=== PATIENT | female | born 1985 | race African-American/Black ===

== ENCOUNTER 2023-04-16 10:04 | Outpatient (CLI) | payer OTHER, SELFPAY ==
[2023-04-16 11:00] LABS: Basophils Absolute Auto 0.1 K/mm3 (0.0-0.1); Basophils Percent Auto 0.5 % (0.2-1.2); Eosinophils Absolute Auto 0.1 K/mm3 (0-0.3); Eosinophils Percent Auto 1.4 % (0-4.4); Hematocrit 41.1 % (37.0-47.0); Hemoglobin 13.7 g/dL (12.0-15.0); Lymphocytes Absolute Auto 2.17 K/mm3 (0.9-3.2); Lymphocytes Percent Auto 22.8 % (18.3-44.2); Mean Corpuscular HGB Conc 33.3 g/dl (32-36); Mean Corpuscular Hemoglobin 28.2 pg (26-34); Mean Corpuscular Volume 84.7 fl (80-100); Mean Platelet Volume 11.2 fl (7.4-10.4); Monocytes Absolute Auto 0.7 K/mm3 (0.1-0.6); Monocytes Percent Auto 7.2 % (2.6-8.5); Neutrophils Absolute Auto 6.4 K/mm3 (1.3-6.7); Neutrophils Percent Auto 67.1 % (45.5-73.1); Platelet Count Result 342 k/mm3 (150-375); Red Blood Count 4.85 M/mm3 (4.2-5.4); Red Cell Distribution Width 14.2 % (11.5-14.5); White Blood Count 9.5 K/mm3 (4.5-10.0)
[2023-04-16 14:55] LABS: Hemoglobin A1C 5.6 % (<5.7)
[2023-04-18 13:52] LABS: DHEA-Sulfate 194 mcg/dL (23-266)
[2023-04-19 07:28] LABS: Insulin Level Total 14.5 uIU/mL (<=18.4); LH 1.7 mIU/mL (***); Prolactin 5.8 ng/mL (***)
[2023-04-20 12:56] LABS: Testosterone Free 3.3 pg/mL (0.2-5.0); Testosterone Total 24 ng/dL (2-45)
== END 2023-04-16 10:05 | disposition home or self-care (01) ==
PROVIDERS: Visit Provider Nurse Practitioner Family
DX: E28.2 Polycystic ovarian syndrome (principal)
CPT/HCPCS: 36415; 82627; 83001; 83002; 83036; 83498; 83525; 84146; 84402; 84403; 84443; 85025

== ENCOUNTER 2024-05-14 09:35 | Outpatient (CLI) | payer OTHER, SELFPAY ==
--- NOTE | ~2024-05-14 | US_ITS ---
EXAMINATION TYPE: US breast RT limited COMPARISON: NONE REASON FOR STUDY: R92.8 - Other abnormal and inconclusive findings on diagn... TECHNIQUE: Targeted sonographic evaluation of the right breast was performed. INTERPRETATION: There is mild hypervascularity in the immediate right retroareolar region with possible minimal promi nence of fibroglandular tissue. No definite suspicious mass or dilated ducts seen. IMPRESSION: Mild hypervascularity in the medial right subareolar region, possible minimal prominent thyroid tissu e. Findings could reflect focal mastitis/inflammatory process. No definite suspicious mass or dilated ducts seen, but bilateral mammography is advised, especially given patient age and reported history of breast lump.. BI-RADS CATEGORY: BI-RADS 0: Needs additional imaging evaluation Reviewed, dictated and finalized at [facility]. IMPRESSION: Mild hypervascularity in the medial right subareolar region, possible minimal p rominent thyroid tissue. Findings could reflect focal mastitis/inflammatory pro cess. No definite suspicious mass or dilated ducts seen, but bilateral mammogra phy is advised, especially given patient age and reported history of breast lum p.. BI-RADS CATEGORY: BI-RADS 0: Needs additional imaging evaluation
--- OUTSIDE RECORDS SUMMARY | 2024-05-14 10:11 | XMS_ITS | Clinical Summary ---
Author Organization [facility] Address [address] [place] [address] Care Team Providers Care Turning And Beading Machine Operator Name Role Phone Casey Chavez MD Primary Care Provider [phone] Social History Tobacco Use Types Packs/Day Years Used Date Smoking Tobacco: Never Assessed Comments Unknown Sex and Gender Information Value Date Recorded Sex Assigned at Not on file Legal Sex Female 5:01 PM CDT Gender Identity Not on file Sexual Orientation Not on file Plan of Treatment Health Maintenance Due Date Last Done Comments Cervical Cancer Screening Pa p Smear (Age 30 to 64) Every 3 Years 1985 Annual Physical 08/05/1986 Hepatitis C 08/05/2001 Hepatitis B Vaccines (1 of 3 - 19+ 3-dose series) 08/05/2002 Cervical Cancer Screening Pa p with HPV Testing (Age 30 to 64) Every 5 Years 08/05/2013 Cervical Cancer Screening wi th HPV 08/05/2013 Mammogram Screening 2023 COVID-19 Vaccine (2023-2 5 season) 2023 Influenza Adult (#1) 2023 DTaP, Tdap and Td Vaccines ( 3 - Td or Tdap) 04/19/2029 04/19/2019, 06/28/2011 HPV Vaccines Aged Out No longer eligi ble based on patient's age to complete this topic Meningococcal B Vaccine Aged Out No l onger eligible based on patient's age to complete this topic Meningococcal Vaccine Aged Out No humble tomi eligible based on patient's age to complete this topic Pneumococcal Vaccine: Pediatrics (0 to 5 Years) and At-Risk Patients (6 to 64 Years) Aged Out No longer eligible b ased on patient's age to complete this topic RSV Immunizations Under 20 Months Aged Out No longer eligible b ased on patient's age to complete this topic Insurance [facility] [place] [address] GENERIC - COMMERCIAL Care Teams Turning And Beading Machine Operator Relationship Specialty Start Date End Date Casey Chavez MD [address] [facility] [address] [place] [address] PCP - General INTERNAL MEDICINE 03/20/21
--- OUTSIDE RECORDS SUMMARY | 2024-05-14 10:11 | XMS_ITS | Clinical Summary ---
Author Organization [facility] Address [address] [place] [address] Phone Care Team Providers Care Plastic Joint Maker Name Role Phone Cookie Fernandez MD Primary Care Provider [phone] Allergies Active Allergy Reactions Criticality Noted Date Comments Flu Vacc Quad 2017-(6mos Up) Other (See Comments) 01/15/2019 Right side went numb. Hard time breathing and couldn't turn neck. Medications no.38-udcf-IG-d jerry (CHICKEN CUTTER-PNV-DHA) 28 mg iron- 1 mg-200 mg Capsule Take 1 Capsule by mouth daily. Can sub for any PNV with DHA 30 Capsule 8 9 Active ibuprofen (MOTRIN) 600 mg tablet Take 1 Tablet (600 mg) by mouth every 6 hours as needed for pain secondary to inflammation. 30 Tablet 07/02/2019 12:14 PM CDT 0 Active metoclopramide HCl (REGLAN) 10 mg tablet Take 1 Tablet (10 mg) by mouth 3 times daily. 30 Tablet 0 Active Active Problems Problem Noted Date Diagnosed Date Sebaceous cyst 09/14/2012 Vulvitis 07/07/2012 Resolved Problems Problem Noted Date Diagnosed Date Resolved Date S/P girl [facility] 07/01/2019 020 Uterine contractions during 06/30/2019 07/01/2019 Decreased movements in third trimester 0 08/24/2019 Vaginal discharge during pre gnancy in third trimester 06/09/2019 08/24/2019 Immunizations Immunization Administration Dates Next Due (ADACEL/BOOSTRIX)(10 YR UP) TDAP VACCINE, 0.5ML, IM 04/19/2019 Family History Medical History Relation Name Comments Colon Cancer Father Ovarian Cancer Mother Breast Cancer Neg Hx Celiac Disease Neg Hx Crohn's Disease Neg Hx GERD Neg Hx Kidney Cancer Neg Hx Kidney Disease Neg Hx Liver Cancer Neg Hx Liver Disease Neg Hx Pancreatic Cancer Neg Hx Relation Name Status Comments Father Alive Mother Alive Social History Tobacco Use Types Packs/Day Years Used Date Smoking Tobacco: Never Smokeless Tobacco: Never Alcohol Use Standard Drinks/Week Comments Not Currently 0 (1 standard drink = 0.6 oz pur e alcohol) Feeling Safe Answer Date Recorded Within the last year, have y ou been afraid of your partner or ex-partner? Patient declined 06/30/2019 Within the last year, have y ou been humiliated or emotionally abused in other ways by your partner or ex-partner? Patient declined 06/30/2019 Within the last year, have y ou been kicked, hit, slapped, or otherwise physically hurt by your partner or ex-partner? Patient declined 06/30/2019 Within the last year, have y ou been raped or forced to have any kind of sexual activity by your partner or ex-partner? Patient declined 06/30/2019 Social Connections Answer Date Recorded In a typical week, how many times do you talk on the phone with family, friends, or neighbors? Patient declined 06/30/2019 How often do you get togethe r with friends or relatives? Patient declined 06/30/2019 How often do you attend moravian or religion serv ices? Patient declined 06/30/2019 Do you belong to any clubs o r organizations such as moravian groups, unions, fraternal or athletic groups, or school groups? Patient declined 06/30/2019 How often do you attend meet ings of the clubs or organizations you belong to? Patient declined 06/30/2019 Are you , , di vorced, , never , or living with a partner? Patient declined 06/30/2019 Financial Resource Strain Answer Date R ecorded How hard is it for you to pa y for the very basics like food, housing, medical care, and heating? Not hard at all 06/30/2019 Food Insecurity Answer Date Recorded Within the past 12 months, y ou worried that your food would run out before you got the money to buy more. Patient declined Within the past 12 months, t he food you bought just didn't last and you didn't have money to get more. Patient declined Transportation Needs Answer Date Record ed In the past 12 months, has l ack of transportation kept you from medical appointments or from getting medications? Patient declined 06/30/2019 In the past 12 months, has l ack of transportation kept you from meetings, work, or from getting things needed for daily living? Patient declined 06/30/2019 Comments No Sex and Gender Information Value Date Recorded Sex Assigned at Not on file Legal Sex Female 6:05 AM BUSINESS SYSTEMS CONSULTANT Gender Identity Not on file Sexual Orientation Not on file Occupation Industry Job Start Date Job End Date Not on file Not on file Not on file Not on file Not on file Not on file Not on file Not on file Last Filed Vital Signs Vital Sign Reading Time Taken Comments Blood Pressure 117/67 07/02/2019 8:13 AM CDT Pulse 92 06/30/2019 7:20 PM CDT Temperature 36.8 C (98.3 F) 07/02/2019 8:13 AM CDT Respiratory Rate 16 07/02/2019 8:13 AM CDT Oxygen Saturation 100% 07/01/2019 1:34 AM CDT Inhaled Oxygen Concentration - - Weight 125.3 kg (276 lb 5 oz) 06/30/2019 7:20 PM CDT Height 180.3 cm (5' 11 ) 06/30/2019 7:20 PM CDT Body Mass Index 38.54 06/30/2019 7:20 PM CDT Plan of Treatment Health Maintenance Due Date Last Done Comments HEPATITIS B VACCINES (1 of 3 - 19+ 3-dose series) 08/05/2002 CERVICAL CANCER SCREENING 12/14/20212018, 01/12/2018, 01/12/2018, Additional history exists BREAST CANCER SCREENING 2023 12/13/2015, 06/06 INFLUENZA VACCINE (#1) 2023 DTAP/TDAP/TD VACCINES (2 - Td or Tdap) 04/19/2029 04/19/2019 HPV VACCINES Aged Out No longer eligi ble based on patient's age to complete this topic Procedures Procedure Name Priority Date/Time Associated Diagnosis Comments CERV/VAG CYTO SCREEN PAP W/HPV Routine 12/14/2018 11:14 AM CDT Routine cervical smear Special screening examination for human papillomavirus (HPV) Well female exam with routine gynecological exam MAMMO DIAGNOSTIC BILATERAL W OR WO CAD Routine 12/13/2015 Breast asymmetry in female Breast pain, right from Last 3 Months or Most Recently Relevant to Health Maintenance Results * CERV/VAG CYTO SCREEN PAP W/HPV (12/14/2018 11:14 AM CDT) CLINICAL INFORMATION Information not provided 12/17/2018 2:21 PM CDT [facility] LAST MENSTRUAL PERIOD Information not provided 12/17/2018 2:21 PM CDT [facility] PREV PAP: 01/12/18 NIL 12/17/2018 2:21 PM CDT [facility] PREV BX: Information not provided 12/17/2018 2:21 PM CDT [facility] SOURCE Endocervix 12/17/2018 2:21 PM CDT [facility] ADEQUACY: SEE COMMENT 12/17/2018 2:21 PM CDT [facility] Comment: Satisfactory for evaluation. Endocervical/transformation zone component absent. Age and/or menstrual status not provided PAP INTERP Negative for intraepithelial lesion or malignancy. 12/17/2018 2:21 PM CDT [facility] CYTOLOGY INFECTION Shift in vaginal rojas suggestive of bacterial vaginosis. 12/17/2018 2:21 PM CDT [facility] COMMENT This Pap test has been evaluated with computer assisted technology. 12/17/2018 2:21 PM CDT [facility] CERTIFIED NURSE: SEE COMMENT 2018 2:21 PM CDT [facility] Comment: BOY COLLADO(ASCP) CT screening location: [place] [address] [place] [address] EXPLANATORY NOTE SEE COMMENT 019 2:21 PM CDT [facility] Comment: EXPLANATORY NOTE: The Pap is a screening test for cervical cancer. It is not a diagnostic test and is subject to false negative and false positive results. It is most reliable when a satisfactory sample, regularly obtained, is submitted with relevant clinical findings and history, and when the Pap result is evaluated along with historic and current clinical information. HPV E6/E7 Not Detected Not Detected 12/17/2018 2:21 PM CDT [facility] Comment: This test was performed using the APTIMA HPV Assay ([employer] This assay detects E6/E7 viral messenger RNA (mRNA) from 14 high-risk HPV types (16,18,31,33,35,39,45,51,52,56,58,59,66,68). The analytical performance characteristics of this assay have been determined by [employer]. The modifications have not been cleared or approved by the FDA. This assay has been validated pursuant to the CLIA regulations and is used for clinical purposes. Genital SWAB OF ENDOCERVIX / Unknown Collection / Unknown 12/14/2018 11:14 AM CDT 12/14/2018 1:58 PM CDT Narrative [facility] - 12/17/2018 2:21 PM CDT Performing Organization Information: Site ID: [id number] [facility] Address: [address] [place] [address] Director: Harman Giordano D.O., MPH Site ID: [id number] Name: [facility] Address: [address] [place] [address] Director: Kenroy Linares Brian Penny MD PATHOLOGY/CYTOLOGY [facility] Final Result [facility] [phone] * MAMMO DIGITAL DIAG BILAT (12/13/2015) Anatomical Region Laterality Modality Breast Bilateral Other Brian Penny MD MAMMO ORDERABLES Final Result from Last 3 Months or Most Recently Relevant to Health Maintenance Insurance [facility] BLUE ACCESS/TRUE BLUE PPO RX [employer] Commercial Advance Directives For more information, please contact: [phone] * Full Code (Latest Code Status on File) Date Activated Date Inactivated Comments 07/01/2019 5:23 PM 07/02/2019 6:54 PM * Full Code Date Activated Date Inactivated Comments 06/30/2019 9:28 PM 07/01/2019 5:23 PM * Full Code Date Activated Date Inactivated Comments 06/30/2019 7:17 PM 06/30/2019 9:28 PM * Full Code Date Activated Date Inactivated Comments 06/09/2019 3:54 PM 06/09/2019 7:43 PM * Full Code Date Activated Date Inactivated Comments 05/20/2013 8:29 AM 05/20/2013 11:45 AM Care Teams Plastic Joint Maker Relationship Specialty Start Date End Date Cookie Fernandez MD [address] [place] [address] PCP - General Family Practice 01/10/17
--- OUTSIDE RECORDS SUMMARY | 2024-05-14 10:11 | XMS_ITS | Referral Summary ---
Author Organization [address] Address [address] [place] [address] Care Team Providers Care Parts Representative Name Role Phone Dilcia Veronica NP Primary Care Provider + Encounters Date Type Department Care Team Description 04/30/2024 9:30 AM SALES STOCK ASSOCIATE Office Visit [facility] Neurology [address] [place] [phone] Marvin Shepard Si, MD Seizures, generalized convulsive (HCC) (Primary Dx) from Last 3 Months Allergies Active Allergy Reactions Criticality Noted Date Comments Haemophilus Influenzae Type B Anaphylaxis High 01/15/2019 Right side went numb. Hard time breathing and couldn't turn neck. [place] Flavor Swelling High 07/27/2021 Medications buPROPion XL (WELLBUTRIN XL) 150 mg 24 hr tablet Take 150 mg by mouth daily 3 Active naltrexone (DEPADE) 50 mg tablet Take 50 mg by mouth daily 3 Active ondansetron (ZOFRAN) 4 mg tablet Take 1 tablet (4 mg total) by mouth every 6 (six) hours as needed 3 Active levETIRAcetam (KEPPRA) 500 mg tablet Take 1 tablet (500 mg total) by mouth 2 (two) times a day 180 tablet 3 5 04/30/19 26 Active levETIRAcetam (KEPPRA) 500 mg tablet Take 1 tablet (500 mg total) by mouth 2 (two) times a day 4 04/30/19 25 Discontinu ed(Reorder ) Active Problems Problem Noted Date Diagnosed Date DAMON (dyspnea on exertion) Social History Tobacco Use Types Packs/Day Years Used Date Smoking Tobacco: Never Smokeless Tobacco: Never Tobacco Cessation:Counseling Given: Not Answered Alcohol Use Standard Drinks/Week Comments Yes 0 (1 standard drink = 0.6 oz pur e alcohol) AUDIT-C Answer Date Recorded Frequency of Alcohol Consumption Not on file 06/18/2018 Average Number of Drinks Not on file 019 Frequency of Binge Drinking Weekly 06/01 PHQ-2 Answer Date Recorded PHQ-2 Score 0 10/23/2018 Comments No Sex and Gender Information Value Date Recorded Sex Assigned at Not on file Legal Sex Female 9:16 PM SALES STOCK ASSOCIATE Gender Identity Not on file Sexual Orientation Not on file Last Filed Vital Signs Vital Sign Reading Time Taken Comments Blood Pressure 122/92 04/30/2024 9:37 AM SALES STOCK ASSOCIATE Pulse 105 04/30/2024 9:37 AM SALES STOCK ASSOCIATE Temperature 35.9 C (96.6 F) 01/29/2022 8:58 AM SALES STOCK ASSOCIATE Respiratory Rate 18 01/29/2022 8:58 AM SALES STOCK ASSOCIATE Oxygen Saturation 98% 05/09/2022 10:19 AM SALES STOCK ASSOCIATE Inhaled Oxygen Concentration - - Weight 134.7 kg (297 lb) 04/30/2024 9:37 AM SALES STOCK ASSOCIATE Height 180.3 cm (5' 11 ) 04/30/2024 9:37 AM SALES STOCK ASSOCIATE Body Mass Index 41.42 04/30/2024 9:37 AM SALES STOCK ASSOCIATE Plan of Treatment Not on file Procedures Procedure Name Priority Date/Time Associated Diagnosis Comments DIAGNOSTIC MAMMOGRAM BILATERAL W TY Routine 12/13/2015 3:05 PM CDT from Last 3 Months or Most Recently Relevant to Health Maintenance Results * Diagnostic Mammogram Bilateral W Ty (12/13/2015 3:05 PM CDT) Anatomical Region Laterality Modality Breast Bilateral Mammography 12/13/2015 3:05 PM CDT Impressions 12/13/2015 4:01 PM CDT OVERALL STUDY BIRADS: 1 NEGATIVE No evidence of malignancy. No mammographic or sonographic abnormality at the site of pain in the right breast. Base any further evaluation on clinical examination. This was discussed with Ms. Ling and she was provided with a hand out on breast pain. A 1 year screening mammogram is recommended, given the patient's family history. Dr. Gunner Dow nh/:12/13/2015 16:01:08 Air Hammer Stripper: Deirdre Reid)(Yohana), [facility] letter sent: Normal Exam Reading location: OVERALL STUDY BIRADS: 1 Negative [EOD] Narrative 12/13/2015 4:01 PM CDT - MG - US BILATERAL DIGITAL DIAGNOSTIC MAMMOGRAM 3D/2D WITH CAD AND TARGETED RIGHT ULTRASOUND WITH MEDIOLATERAL OBLIQUE CRANIOCAUDAL: 12/13/2015 The study was acquired using full field digital technology and interpreted from soft copy. Current study was also evaluated with R2 CAD. 2D digital mammographic views, as well as 3D digital tomosynthesis were performed in the CC and MLO projections. CLINICAL: 30-year-old woman presents for evaluation of focal pain in the lateral right breast radiating to the nipple for the past 6 months, and annual mammography of the left breast. Family history of mother with breast cancer at age 40. COMPARISONS: Comparison is made to exam dated: 06/04/2014 baseline mammogram - [facility]. BREAST TISSUE: There are scattered areas of fibroglandular density. MAMMOGRAPHIC FINDINGS: A radiopaque marker was placed over the site of focal pain in the lateral right breast. There is no mammographic abnormality at this site. Targeted ultrasound will be performed. There has been no suspicious change. There is no dominant mass, suspicious calcification or architectural distortion in either breast. ULTRASOUND FINDINGS: Targeted right breast ultrasound at the site of pain along the 10 o'clock axis demonstrated normal-appearing tissue. Procedure Note Provider, MD Neris - 07/17/2020 - MG - US BILATERAL DIGITAL DIAGNOSTIC MAMMOGRAM 3D/2D WITH CAD AND TARGETED RIGHT ULTRASOUND WITH MEDIOLATERAL OBLIQUE CRANIOCAUDAL: 12/13/2015 The study was acquired using full field digital technology and interpretedfrom soft copy. Current study was also evaluated with R2 CAD. 2D digital mammographic views, as well as 3D digital tomosynthesis were performed in the CC and MLO projections. CLINICAL: 30-year-old woman presents for evaluation of focal pain in the lateral right breast radiating to the nipple for the past 6 months, andannual mammography of the left breast. Family history of mother with breastcancer at age 40. COMPARISONS: Comparison is made to exam dated: 06/04/2014 baselinemammogram - [facility]. BREAST TISSUE: There are scattered areas of fibroglandular density. MAMMOGRAPHIC FINDINGS: A radiopaque marker was placed over the site offocal pain in the lateral right breast. There is no mammographic abnormality atthis site. Targeted ultrasound will be performed. There has been no suspicious change. There is no dominant mass,suspicious calcification or architectural distortion in either breast. ULTRASOUND FINDINGS: Targeted right breast ultrasound at the site of pain along the 10 o'clock axis demonstrated normal-appearing tissue. IMPRESSION: OVERALL STUDY BIRADS: 1 NEGATIVE No evidence of malignancy. No mammographic or sonographic abnormality atthe site of pain in the right breast. Base any further evaluation on clinical examination. This was discussed with Ms. Ling and she was providedwith a hand out on breast pain. A 1 year screening mammogram is recommended, given the patient's family history. Dr. Gunner Dow nh/:12/13/2015 16:01:08 Air Hammer Stripper: Deirdre AMARAL (R)(Yohana), [facility] letter sent: Normal Exam Reading location: OVERALL STUDY BIRADS: 1 Negative [EOD] Brian Penny MD IMG MAMMO PROCEDURES Final Result from Last 3 Months or Most Recently Relevant to Health Maintenance Insurance [facility] CHOICE [facility]US [facility] [facility] PLUS [employer] Care Teams Parts Representative Relationship Specialty Start Date End Date Dilcia Veronica NP [address] [place] [address] PCP - General Family Practice 04/30/24
--- OUTSIDE RECORDS SUMMARY | 2024-05-14 10:11 | XMS_ITS | Encounter Summary ---
Author Organization [facility] Care Team Providers Care Certified Rehabilitation Counselor Name Role Phone Cookie Fernandez MD Primary Care Provi alex Casey Chavez MD Primary Care Provider [phone] Dwain Christensen MD Primary Care Provider Dilcia Veronica NP Primary Care Provider + Encounter Details Date Type Department Care Team (Latest Contact Info) Description 11/17/2015 Orders Only [facility] CLINCONV Provider, MD Neris [address] [place] [address] Social History Tobacco Use Types Packs/Day Years Used Date Smoking Tobacco: Never Assessed Comments Unknown Sex and Gender Information Value Date Recorded Sex Assigned at Not on file Legal Sex Female 9:16 PM 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 Historical Provider Final Res ult documented in this encounter Visit Diagnoses Not on filedocumented in this encounter Care Teams Certified Rehabilitation Counselor Relationship Specialty Start Date End Date Cookie Fernandez MD [address] [place] [address] PCP - General Family Medicine 06/17/18 03/22/21 Casey Chavez MD [address] [place] [address] PCP - General Internal Medicine 03/23/21 02/05/22 Dwain Christensen MD [address] [place] [address] PCP - General Family Medicine 02/06/22 04/29/24 Dilcia Veronica NP [address] [place] [address] PCP - General Family Practice 04/30/24 documented as of this encounter
--- OUTSIDE RECORDS SUMMARY | 2024-05-14 10:11 | XMS_ITS ---
Author Organization [facility] Address [address] [place], [place] [phone] Care Team Providers Care Front Office Supervisor Name Role Phone WENDY BREWSTER Unavailable [phone] REASON FOR VISIT *Foot Pain Encounters Encounter Location Date Provider Diagnosis [facility] [address] [facility] [address] [place], [place] [phone] 11/12/2023 WENDY BREWSTER Plan Of Treatment No Information Progress Notes * Antelmo LINGDOB:1985 (38 yo F)Acc No.[id number]:11/12/2023 Progress Notes Patient: Antelmo MCGEE Provider: Brandy Brewster DPM :1985 A ge:38 Y S ex:Female Date:11/12/2023 Address:[facility] [address] [place] [id number] Subjective: * Chief Complaints: * 1 . *Foot Pain. * Medical History: Objective: * Vitals: Assessment: Plan: * Treatment: * Billing Information: * Visit Code: * Procedure Codes: * Electronic signature of GEN CID DPM on 05/14/2024 at 10:11 AM CDT Sign off status: Pending * Provider: Brandy Brewster DPM Date: 0 11/12/2023 Generated for Joann dixon/Nikolai/Navjotitting on: 0 05/14/2024 10:11 AM CDT
--- OUTSIDE RECORDS SUMMARY | 2024-05-14 10:11 | XMS_ITS | Clinical Summary ---
Author Organization [address] Address [address] [address] Care Team Providers Care Channel Marketing Coordinator Name Role Phone Dilcia Veronica NP Primary Care Provider + Allergies Active Allergy Reactions Criticality Noted Date Comments Haemophilus Influenzae Type B Anaphylaxis High 01/15/2019 Right side went numb. Hard time breathing and couldn't turn neck. Nikita Flavor Swelling High 07/27/2021 Medications buPROPion XL [...] Date Diagnosed Date DAMON (dyspnea on exertion) Encounters Date Type Department Care Team Description 04/30/2024 9:30 AM SEED TESTER Office Visit [facility] Neurology [address] [place] [phone] Marvin Shepard Si, MD Seizures, generalized convulsive (HCC) (Primary Dx) from Last 3 Months Family History Medical History Relation Name Comments Heart attack Father Stent Father Cancer Other 1 Reported Family History Of Cancer - Father. (Added by TW Conv) Hypertension Other 2 Reported Previo us High Blood Pressure - Mother. (Added by TW Conv) Thyroid disease Other 3 Thyroid Diso rder - Mother. (Added by TW Conv) Diabetes Other 4 Diabetes Mellit us - Father. (Added by TW Conv) Relation Name Status Comments Father Other 1 Other 2 Other 3 Other 4 Social History Tobacco Use Types Packs/Day Years [...] on file Legal Sex Female 9:16 PM SEED TESTER Gender Identity Not on file Sexual Orientation Not on file Obstetrics History Last Filed Vital Signs Vital Sign Reading Time Taken Comments Blood Pressure 122/92 04/30/2024 9:37 AM SEED TESTER Pulse 105 04/30/2024 9:37 AM SEED TESTER Temperature 35.9 C (96.6 F) 01/29/2022 8:58 AM SEED TESTER Respiratory Rate 18 01/29/2022 8:58 AM SEED TESTER Oxygen Saturation 98% 05/09/2022 10:19 AM SEED TESTER Inhaled Oxygen Concentration - - Weight 134.7 kg (297 lb) 04/30/2024 9:37 AM SEED TESTER Height 180.3 cm (5' 11 ) 04/30/2024 9:37 AM SEED TESTER Body Mass Index 41.42 04/30/2024 9:37 AM SEED TESTER Plan of Treatment Health Maintenance Due Date Last Done Comments Cervical Cancer Screening 1983 Hepatitis C Screening 1983 Varicella Vaccines (1 of 2 - 13+ 2-dose series) 08/05/1996 Hepatitis B Screening 08/05/2001 Regular Well Visit/Exam 18-64 08/05/2001 Breast Cancer Screening-Mammogram 12/12/2016 12/13/2015, 06/06/2014, 06/04/2014 Depression Screening 06/19/2019 06/18/2018 Influenza Vaccine (#1) 2023 DTaP/Tdap/Td Vaccine (2 - Td or Tdap) 04/19/2029 04/19/2019 HPV Vaccines Aged Out No longer eligi ble based on patient's age to complete this topic Pneumococcal vaccine <65 Aged Out No longer eligible based on patient's age to complete [...] family history. Dr. Gunner Dow nh/:12/13/2015 16:01:08 Band Machine Operator: Deirdre AMARAL (R)(M), [facility] letter sent: Normal Exam Reading location: OVERALL [...] Comparison is made to exam dated: 06/04/2014 [facility]. BREAST TISSUE: There are scattered areas of [...] Comparison is made to exam dated: 06/04/2014 [facility]. BREAST TISSUE: There are scattered areas of [...] on clinical examination. This was discussed with French Sushil and she was providedwith a hand out on breast pain. A 1 year screening mammogram is recommended, given the patient's family history. Dr. Gunner Dow nh/:12/13/2015 16:01:08 Band Machine Operator: Deirdre AMARAL (R)(M), [facility] letter sent: Normal Exam Reading location: OVERALL STUDY BIRADS: 1 Negative [EOD] Brian Penny MD IMG MAMMO PROCEDURES Final Result from Last 3 Months or Most Recently Relevant to Health Maintenance Insurance [facility] Address: [address] [address] [place] [address] [facility] CHO[facility] Address: [facility] [id number] [place] [address] [employer] Care Teams Channel Marketing Coordinator Relationship Specialty Start Date End Date Dilcia Veronica NP [address] [place] [address] PCP - General Family Practice 04/30/24
--- OUTSIDE RECORDS SUMMARY | 2024-05-14 10:11 | XMS_ITS | Patient Health Summary ---
Author Organization [facility] [employer] Address [address] [place] [address] Care Team Providers Care Dice Person Name Role Phone Margarita Wu MD Unavailable [phone] None, Physician Primary Care Provider Unavailabl e Note from [facility],non-owned Affiliates and Associated Physician Practices is amultiple site organization consisting of ambulatory clinics and hospital sitesin [place], [place], [place] and [place]. This disclosure is being madepursuant to the Care Everywhere program and may not contain all information available regarding this patient. Last updated 17.[facility] Allergies * Dairy Enzyme Formula(Anaphylaxis) -High Criticality * Flu Virus Vaccine(Anaphylaxis) -High Criticality * Hemophilus B Polysaccharide Vaccine(Anaphylaxis) -High Criticality * Riley Flavor(Swelling) -High Criticality Medications * Be aware that medications may not be up to date on this document. Alwaysverify current medications with the patient. * tirzepatide (Mounjaro) 5 MG/0.5ML injection(Started 02/13/2022) Inject 5 (five) mg subcutaneously every 7 days 2 refills by 02/13/2023 * traZODone (Desyrel) 50 MG tablet(Started 04/09/2022) Take 1 (one) tablet by mouth at bedtime * buPROPion XL 24hr (Wellbutrin-XL) 150 MG tablet(Started 04/24/2022) Take 1 (one) tablet by mouth once daily 2 refills by 04/24/2023 * naltrexone (Revia) 50 MG tablet(Started 04/25/2022) Take 1 (one) tablet by mouth once daily 2 refills by 04/25/2023 * dicyclomine (Bentyl) 10 MG capsule(Started 08/19/2022) Take 1 (one) capsule by mouth 4 times daily * ondansetron (Zofran) 4 MG tablet(Started 08/19/2022) Take 1 (one) tablet by mouth every 6 hours as needed for Nausea/Vomiting Active Problems Problem Noted Date Diagnosed Date Class 3 severe obesity due t o excess calories with serious comorbidity and body mass index (BMI) of 40.0 to 44.9 in adult 02/06/2022 Pulmonary hypertension 01/15/2022 ASCUS of cervix with negative high risk HPV 08/2021 Sebaceous cyst 09/14/2012 PCOS (polycystic ovarian syndrome) Disorder of thyroid Anxiety disorder Immunizations * TDAP (7yrs+)(Given 04/19/2019) Social History Tobacco Use Types Packs/Day Years Used Date Smoking Tobacco: Never Smokeless Tobacco: Never Tobacco Cessation:Counseling Given: Not Answered Alcohol Use Standard Drinks/Week Comments Yes 0 (1 standard drink = 0.6 oz pur e alcohol) PHQ-2 Answer Date Recorded PHQ2 TOTAL SCORE 0 08/19/2022 Sex and Gender Information Value Date Recorded Sex Assigned at Not on file Gender Identity Female 07/27/2021 10:18 AM CDT Sexual Orientation Not on file Last Filed Vital Signs Vital Sign Reading Time Taken Comments Blood Pressure 127/77 08/19/2022 3:07 PM CDT Pulse 90 08/19/2022 3:07 PM CDT Temperature 37.2 C (98.9 F) 08/19/2022 3:07 PM CDT Respiratory Rate - - Oxygen Saturation 100% 08/19/2022 3:07 PM CDT Inhaled Oxygen Concentration - - Weight 136.5 kg (301 lb) 08/19/2022 3:07 PM CDT Height 180.3 cm (5' 11 ) 08/19/2022 3:07 PM CDT Body Mass Index 41.98 08/19/2022 3:07 PM CDT Procedures * XR ABDOMEN KUB(Performed 08/19/2022) Performed for Abdominal pain, unspecified abdominal location * LIPASE BLOOD(Performed 08/19/2022) Performed for Abdominal pain, unspecified abdominal location * COMPREHENSIVE METABOLIC PANEL(Performed 08/19/2022) Performed for Abdominal pain, unspecified abdominal location * CBC W AUTO DIFFERENTIAL(Performed 08/19/2022) Performed for Abdominal pain, unspecified abdominal location * LIPID PROFILE(Performed 08/08/2021) Performed for PCOS (polycystic ovarian syndrome) * ANTI-MULLERIAN HORMONE(Performed 08/08/2021) Performed for PCOS (polycystic ovarian syndrome) * PROGESTERONE(Performed 08/08/2021) Performed for PCOS (polycystic ovarian syndrome) * ESTRADIOL(Performed 08/08/2021) Performed for PCOS (polycystic ovarian syndrome) * FSH + LH PANEL(Performed 08/08/2021) Performed for PCOS (polycystic ovarian syndrome) * HEMOGLOBIN A1C(Performed 08/08/2021) Performed for PCOS (polycystic ovarian syndrome) * DHEA SULFATE(Performed 08/08/2021) Performed for PCOS (polycystic ovarian syndrome) * COMPREHENSIVE METABOLIC PANEL(Performed 08/08/2021) Performed for PCOS (polycystic ovarian syndrome) * CBC W AUTO DIFFERENTIAL(Performed 08/08/2021) Performed for Hypothyroidism, unspecified type, Pulmonary hypertension (HCC), PCOS (polycystic ovarian syndrome) * THYROID PANEL COMPREHENSIVE (TSH,T4,T3 UPTAKE,FTI,T3)(Performed 08/08/2021) Performed for Well woman exam with routine gynecological exam, Hypothyroidism, unspecified type, Pulmonary hypertension (HCC) * PAP IG LB+CT+NG+TV+HPV APTIMA RFLX 16,18/45(Performed 07/27/2021) Performed for Well woman exam with routine gynecological exam, Special screening examination for human papillomavirus (HPV), Screening for venereal disease Results * XR ABDOMEN KUB (08/19/2022 4:20 PM CDT) Anatomical Region Laterality Modality Abdomen Radiographic Ann ging 08/19/2022 4:26 PM CDT Impressions 08/19/2022 4:27 PM CDT IMPRESSION: NONSPECIFIC BOWEL GAS PATTERN. > Interpreting Provider: Vivek Villeda MD on 08/19/2022 4:27 PM Narrative 08/19/2022 4:27 PM CDT PROCEDURE: TEMPORARY, DATE/TIME OF EXAM: 08/19/2022 4:26 PM, LOCATION INDICATION: ADDITIONAL CLINICAL INFORMATION: Ordering Provider Reason For Exam: Technologist Note: Additional: COMPARISON: None. ABDOMINAL PLAIN FILM INDICATION: 37 old woman with abdominal pain and diarrhea FINDINGS: An AP supine examination the abdomen, 4 is reviewed without the benefit of any prior studies. Body ornamentation is present. I do not see any abnormally dilated small bowel loops. There is no pneumatosis. I do not see any suspicious extraosseous calcifications. Images, 1637 hours, Procedure Note Vivek Villeda MD - 08/19/2022 PROCEDURE: TEMPORARY, DATE/TIME OF EXAM: 08/19/2022 4:26 PM, LOCATION INDICATION: ADDITIONAL CLINICAL INFORMATION: Ordering Provider Reason For Exam: Technologist Note: Additional: COMPARISON: None. ABDOMINAL PLAIN FILM INDICATION: 37 old woman with abdominal pain and diarrhea FINDINGS: An AP supine examination the abdomen, 4 is reviewed withoutthe benefit of any prior studies. Body ornamentation is present. I do not see any abnormally dilated small bowel loops. There is no pneumatosis. I do not see any suspicious extraosseous calcifications. Images, 1637 hours, IMPRESSION: NONSPECIFIC BOWEL GAS PATTERN. > Interpreting Provider: Vivek Villeda MD on 08/19/2022 4:27 PM Melodie Hidalgo PA-C DIAGNOSTIC IMAGIN G ORDERABLES * (ABNORMAL) CBC WITH DIFFERENTIAL (08/19/2022 3:39 PM CDT) Only the most recent of2 resultswithin the time period is included. WBC 12.9(H) 4.4 - 10.7 x10E9/L [facility] ACCOUNT BILL RBC 4.94 3.80 - 5.20 x10E12/L [facility] ACCOUNT BILL Hemoglobin 13.7 12.0 - 15.6 gm/dL [facility] ACCOUNT BILL Hematocrit 42.2 35.9 - 45.5 % [facility] ACCOUNT BILL MCV 85.4 80.7 - 98.3 fl [facility] ACCOUNT BILL MCH 27.7 26.7 - 34.0 pg [facility] ACCOUNT BILL MCHC 32.5 30.8 - 35.9 gm/dL [facility] ACCOUNT BILL RDW 13.8 12.1 - 14.9 % [facility] ACCOUNT BILL Platelet Count 316 153 - 416 x10E9/L [facility] ACCOUNT BILL Comment:MPV FL BLOOD (SSM) 1 1.6 fl 9.4-12.9 Granulocytes % 66.4 44.0 - 73.0 % [facility] ACCOUNT BILL Lymphocytes % 19.0(L) 20.0 - 43.0 % [facility] ACCOUNT BILL Monocytes % 5.3 5.0 - 13.0 % [facility] ACCOUNT BILL Eosinophils % 7.2(H) 0.0 - 6.0 % [facility] ACCOUNT BILL Basophils % 0.5 0.0 - 2.0 % [facility] ACCOUNT BILL Granulocytes Absolute 8.57(H) 2.01 - 7.14 x10E9/L [facility] ACCOUNT BILL Lymphocytes Absolute 2.45 1.07 - 3.94 x10E9/L [facility] ACCOUNT BILL Monocytes Absolute 0.68 0.26 - 1.07 x10E9/L [facility] ACCOUNT BILL Eosinophils Absolute 0.93(H) 0 - 0.47 x10E9/L [facility] ACCOUNT BILL Basophils Absolute 0.06 0 - 0.08 x10E9/L [facility] ACCOUNT BILL Immature Granulocytes 1.6(H) 0 - 1 % [facility] ACCOUNT BILL Immature Granulocytes Absolute 0.21(H) 0.00 - 0.06 x10E9/L [facility] ACCOUNT BILL nRBC 0 /100 WBC [facility] ACCOUNT BILL Blood BLOOD SPECIMEN / Unknown 08/19/2022 3:39 PM CDT 08/19/2022 Narrative Resulting Agency Comment Lab Testing performed at: [address] [place] [phone] Melodie Hidalgo PA-C LAB - HEMATOLOGY ORDERABLES [facility] ACCOUNT BILL [address] [place] [address] * (ABNORMAL) COMPREHENSIVE METABOLIC PANEL (08/19/2022 3:39 PM CDT) Only the most recent of2 resultswithin the time period is included. Glucose 90 70 - 105 mg/dL [facility] ACCOUNT BILL BUN 8 7 - 18.7 mg/dL [facility] ACCOUNT BILL Creatinine 0.89 0.57 - 1.11 mg/dL [facility] ACCOUNT BILL eGFR by CKD-EPI 85(L) >=90 mL/min/1.7 3 m2 [facility] ACCOUNT BILL Sodium 140 136 - 145 mmol/L [facility] ACCOUNT BILL Potassium 4.4 3.5 - 5.1 mmol/L [facility] ACCOUNT BILL Chloride 106 98 - 107 mmol/L [facility] ACCOUNT BILL CO2 23 23 - 31 mmol/L [facility] ACCOUNT BILL Calcium 9.7 8.4 - 10.4 mg/dL [facility] ACCOUNT BILL Protein Total 7.3 6.4 - 8.3 gm/dL [facility] ACCOUNT BILL Albumin 4.1 3.5 - 5.2 gm/dL [facility] ACCOUNT BILL Bilirubin Total 0.4 0.2 - 1.2 mg/dL [facility] ACCOUNT BILL Alkaline Phosphatase 47 40 - 150 U/L [facility] ACCOUNT BILL AST 13 5 - 34 U/L [facility] ACCOUNT BILL ALT 15 0 - 61 U/L [facility] ACCOUNT BILL Blood BLOOD SPECIMEN / Unknown 08/19/2022 3:39 PM CDT 08/19/2022 Narrative Resulting Agency Comment Lab Testing performed at: [address] [place] [phone] Melodie Hidalgo PA-C LAB - CHEMISTRY O CONNIEERABRITTA [facility] ACCOUNT BILL [address] [place] [address] * LIPASE BLOOD (08/19/2022 3:39 PM CDT) Lipase 10 8 - 78 U/L [facility] A CCOUNT BILL Blood BLOOD SPECIMEN / Unknown 08/19/2022 3:39 PM CDT 08/19/2022 Narrative Resulting Agency Comment Lab Testing performed at: [place] [address] [address] [place] [id number] Melodie Hidalgo PA-C LAB - CHEMISTRY O RDERABLES [facility] ACCOUNT BILL [address] [place] [address] * ANTI-MULLERIAN HORMONE (08/08/2021 1:44 PM CDT) Anti-Mullerian Hormone 7.32 ng/mL [facility] ACCOUNT BILL Comment: For assays employing antibodies, the possibility exists for interference by heterophile antibodies in the samples.1 1.A[place]ia [place] Interferences in Immunoassays - still a threat. Clin. Chem. 2000; 46: 7720-9270. This test was developed and its performance characteristics determined by [facility]. It has not been cleared or approved by the Food and Drug Administration. Reference Range: Females 36 - 40y: 0.42 - 8.34 Median 1.69 AMH concentrations of >= 1.06 ng/mL is correlated with a better response to ovarian stimulation, produced more retrievable oocytes and higher odds of live according to Carloser et al. Fertility and Sterility. 2010: 94:6164-5465. The current AMH test method correlates with the study method with a slope of 0.94. Females at risk of ovarian hyperstimulation syndrome or polycystic ovarian syndrome (PCOS) may exhibit elevated serum AMH concentrations. AMH levels from PCOS patients may be 2 to 5 fold higher than age-appropriate reference interval values. Granulosa cell tumors of the ovary may secrete AMH along with other tumor markers. Elevated AMH is not specific for malignancy, and the assay should not be used exclusively to diagnose or exclude an AMH-secreting ovarian tumor. FASTING Blood BLOOD SPECIMEN / Unknown 08/08/2021 1:44 PM CDT 08/08/2021 Narrative Resulting Agency Comment Lab Testing performed at: [employer] [address] [place] [id number] Margarita Wu MD LAB - CHEMISTRY ROLANDA PETERSON [facility] ACCOUNT BILL [address] [place] [address] * DHEA SULFATE (08/08/2021 1:44 PM CDT) Dehydroepiandrosterone Sulfate (DHEAS) 184.0 57.3 - 279.2 ug/dL [facility] ACCOUNT BILL Comment:FASTING Blood BLOOD SPECIMEN / Unknown 08/08/2021 1:44 PM CDT 08/08/2021 Narrative Resulting Agency Comment Lab Testing performed at: [facility] [place] [address] [facility] [phone] Margarita Wu MD LAB - CHEMISTRY ROLANDA PETERSON Performing Organization Address City/[facility] Co de Phone Number [facility] ACCOUNT BILL [address] [place] [address] * PROGESTERONE (08/08/2021 1:44 PM CDT) Progesterone 0.2 ng/mL [facility] ACCOUNT BILL Comment: Follicular phase 0.1 - 0.9 Luteal phase 1.8 - 23.9 Ovulation phase 0.1 - 12.0 First trimester 11.0 - 44.3 Second trimester 25.4 - 83.3 Third trimester 58.7 - 214.0 Postmenopausal 0.0 - 0.1 FASTING Blood BLOOD SPECIMEN / Unknown 08/08/2021 1:44 PM CDT 08/08/2021 Narrative Resulting Agency Comment Lab Testing performed at: [facility] [place] [address] [facility] [phone] Margarita Wu MD LAB - CHEMISTRY ROLANDA PETERSON Performing Organization Address [facility] Co de Phone Number [facility] ACCOUNT BILL [address] [place] [address] * HEMOGLOBIN A1C (08/08/2021 1:44 PM CDT) Hemoglobin A1c 5.5 4.8 - 5.6 % [facility] ACCOUNT BILL Comment: . Prediabetes: 5.7 - 6.4 Diabetes: >6.4 Glycemic control for adults with diabetes: <7.0 FASTING Blood BLOOD SPECIMEN / Unknown 08/08/2021 1:44 PM CDT 08/08/2021 Narrative Resulting Agency Comment Lab Testing performed at: [facility] [place] [address] [facility] [id number] Margarita Wu MD LAB - CHEMISTRY ROLANDA PETERSON Performing Organization Address City/[facility]/ZIP Co de Phone Number [facility] ACCOUNT BILL [address] [place] [address] * ESTRADIOL (08/08/2021 1:44 PM CDT) Estradiol 39.6 pg/mL [facility] ACCOUNT BILL Comment: Adult Female: Follicular phase 12.5 - 166.0 Ovulation phase 85.8 - 498.0 Luteal phase 43.8 - 211.0 Postmenopausal <6.0 - 54.7 1st trimester 215.0 - >4300.0 Regina ECLIA methodology FASTING Blood BLOOD SPECIMEN / Unknown 08/08/2021 1:44 PM CDT 08/08/2021 Narrative Resulting Agency Comment Lab Testing performed at: [facility] [address] [facility] [phone] Margarita Wu MD LAB - CHEMISTRY ROLANDA PETERSON [facility] ACCOUNT BILL [address] [place] [address] * FSH + LH PANEL (08/08/2021 1:44 PM CDT) LH 5.8 mIU/mL [facility] ACCOUNT BILL Comment: Adult Female: Follicular phase 2.4 - 12.6 Ovulation phase 14.0 - 95.6 Luteal phase 1.0 - 11.4 Postmenopausal 7.7 - 58.5 FSH 8.0 mIU/mL [facility] ACCOUNT BILL Comment: Adult Female: Follicular phase 3.5 - 12.5 Ovulation phase 4.7 - 21.5 Luteal phase 1.7 - 7.7 Postmenopausal 25.8 - 134.8 FASTING Blood BLOOD SPECIMEN / Unknown 08/08/2021 1:44 PM CDT 08/08/2021 Narrative Resulting Agency Comment Lab Testing performed at: [facility] [address] [facility] [phone] Margarita Wu MD LAB - CHEMISTRY ROLANDA PETERSON [facility] ACCOUNT BILL [address] [place] [address] * (ABNORMAL) LIPID PROFILE (LIPID PANEL) (08/08/2021 1:44 PM CDT) Cholesterol 229(H) 100 - 199 mg/dL [facility] ACCOUNT BILL Triglycerides 48 0 - 149 mg/dL [facility] ACCOUNT BILL HDL Cholesterol 49 >39 mg/dL [facility] ACCOUNT BILL VLDL Calculated 8 5 - 40 mg/dL [facility] ACCOUNT BILL LDL Calculated 172(H) 0 - 99 mg/dL [facility] ACCOUNT BILL Comment NOT NEEDED [facility] ACCOUNT BILL Comment: FASTING Ancillary determined the test is not needed. Blood BLOOD SPECIMEN / Unknown 08/08/2021 1:44 PM CDT 08/08/2021 Narrative Resulting Agency Comment Lab Testing performed at: [facility] [address] [place] [phone] Margarita Wu MD LAB - CHEMISTRY ROLANDA PETERSON Performing Organization Address City/[facility]/ZIP Co de Phone Number [facility] ACCOUNT BILL [address] [place] [address] * THYROID PANEL COMPREHENSIVE (TSH,T4,T3 UPTAKE,FTI,T3) (08/08/2021 1:43 PM CDT) TSH 1.840 0.450 - 4.500 uIU/mL [facility] ACCOUNT BILL T4 Total 6.3 4.5 - 12.0 ug/dL [facility] ACCOUNT BILL T3 Uptake 29 24 - 39 % [facility] ACCOUNT BILL Free Thyroxine Index 1.8 1.2 - 4.9 [facility] ACCOUNT BILL T3 Total 94 71 - 180 ng/dL [facility] ACCOUNT BILL Comment:FASTING Blood BLOOD SPECIMEN / Unknown 08/08/2021 1:43 PM CDT 08/08/2021 Narrative Resulting Agency Comment Lab Testing performed at: [facility] [place] [address] [facility] [phone] Margarita Wu MD LAB - CHEMISTRY ROLANDA PETERSON Performing Organization Address City/[facility]/ZIP Co de Phone Number [facility] ACCOUNT BILL [address] [place] [address] * (ABNORMAL) PAP IG LB+CT+NG+TV+HPV APTIMA RFLX 16,18/45 (07/27/2021 11:01 AM CDT) Diagnosis (A) [facility] ACCOUNT BILL Comment: EPITHELIAL CELL ABNORMALITY. ATYPICAL SQUAMOUS CELLS OF UNDETERMINED SIGNIFICANCE (ASC-US). Specimen Adequacy [facility] ACCOUNT BILL Comment: Satisfactory for evaluation. Endocervical and/or squamous metaplastic cells (endocervical component) are present. Clinician Provided ICD10 [facility] ACCOUNT BILL Comment: Z01.419 Z11.51 Z11.3 E03.9 I27.20 E28.2 Performed by [facility] ACCOUNT BILL Comment:Genaro [facility] Steam Table Attendant (ASCP) Electronically Signed by [facility] ACCOUNT BILL Comment:Michael dsouza MD (Charles), Pathologist Comment . [facility] ACCOUNT BILL Pathologist Provided ICD10 [facility] ACCOUNT BILL Comment:R87.610 Note [facility] ACCOUNT BILL Comment: The Pap smear is a screening test designed to aid in the detection of premalignant and malignant conditions of the uterine cervix. It is not a diagnostic procedure and should not be used as the sole means of detecting cervical cancer. Both false-positive and false-negative reports do occur. . IGLBP CPT Code Automation [facility] ACCOUNT BILL Comment: This liquid based ThinPrep(R) pap test was screened with the use of an image guided system. Human papillomavirus Aptima Negative Negative [facility] ACCOUNT BILL Comment: This nucleic acid amplification test detects fourteen high-risk HPV types (16,18,31,33,35,39,45,51,52,56,58,59,66,68) without differentiation. Chlamydia trachomatis BRAD Negative Negative [facility] ACCOUNT BILL GC BRAD Negative Negative [facility] ACCOUNT BILL Trichomonas vaginalis by BRAD Negative Negative [facility] ACCOUNT BILL PART OF UTERINE CERVIX / Unknown 07/27/2021 11:01 AM CDT 07/30/2021 Narrative [facility] ACCOUNT BILL - 08/03/2021 3:08 PM CDT Source.............Cervix;Endocervix No. of containers..01 ThinPrep Vial Resulting Agency Comment Lab Testing performed at: [facility] [phone] Margariat Wu MD LAB - PATHOLOGY/CYTO LOGY ORDERABLES [facility] ACCOUNT BILL [address] [place] [address] Care Teams Dice Person Relationship Specialty Start Date End Date None, Physician PCP - General 05/20/23 [place] [address] [place], [place] [id number] Bulk Sealer Operator Obstetrics and Gynecology 07/27/21
--- OUTSIDE RECORDS SUMMARY | 2024-05-14 10:12 | XMS_ITS | Referral Summary ---
Author Organization [facility] Address [address] [place] [address] Care Team Providers Care Tuck Pointer Name Role Phone Margarita Wu MD Unavailable [phone] None, Physician Primary Care Provider Unavailabl e Source Comments [facility],non-owned Affiliates and Associated Physician Practices is amultiple site organization consisting of ambulatory clinics and hospital sitesin [place], [place], [place] and [place]. This disclosure is being madepursuant to the Care Everywhere program and may not contain all information available regarding this patient. Last updated 17.[facility] Allergies Active Allergy Reactions Criticality Noted Date Comments Dairy Enzyme Formula Anaphylaxis High 07/27/2021 Flu Virus Vaccine Anaphylaxis High 01/15/2019 Right side went numb. Hard time breathing and couldn't turn neck. Hemophilus B Polysaccharide Vaccine Anaphylaxis High 01/15/2019 Right side went numb. Hard time breathing and couldn't turn neck. [place] Flavor Swelling High 07/27/2021 Medications * Be aware that medications may not be up to date on this document. Alwaysverify current medications with the patient. Medication Sig Dispensed Refills Start Date End Date Status tirzepatide (Mounjaro) 5 MG/0.5ML injectionIndicati ons:Class 3 severe obesity due to excess calories with serious comorbidity and body mass index (BMI) of 40.0 to 44.9 in adult (HCC),Insulin resistance Inject 5 (five) mg subcutaneously every 7 days 2 mL 2 02/13/2022 Active traZODone (Desyrel) 50 MG tabletIndications :Generalized anxiety disorder,Reactive depression Take 1 (one) tablet by mouth at bedtime 90 tablet 04/09/2022 Active buPROPion XL 24hr (Wellbutrin-XL) 150 MG tabletIndications :Class 3 severe obesity due to excess calories with serious comorbidity and body mass index (BMI) of 40.0 to 44.9 in adult (HCC) Take 1 (one) tablet by mouth once daily 30 tablet 2 04/24/2022 Active naltrexone (Revia) 50 MG tablet Take 1 (one) tablet by mouth once daily 30 tablet 2 04/25/2022 Active dicyclomine (Bentyl) 10 MG capsule Take 1 (one) capsule by mouth 4 times daily 60 capsule 08/19/2022 Active ondansetron (Zofran) 4 MG tablet Take 1 (one) tablet by mouth every 6 hours as needed for Nausea/Vomiting 60 tablet 08/19/2022 Active Active Problems Problem Noted Date Diagnosed Date Class 3 severe obesity due t o excess calories with serious comorbidity and body mass index (BMI) of 40.0 to 44.9 in adult 02/06/2022 Pulmonary hypertension 01/15/2022 ASCUS of cervix with negative high risk HPV 08/2021 Overview (2021): Repeat pap 2022 due to history abnormal pap [id number] with colpo. No records in Epic. Sebaceous cyst 09/14/2012 PCOS (polycystic ovarian syndrome) Disorder of thyroid Anxiety disorder Immunizations Name Administration Dates Next Due TDAP (7yrs+) 04/19/2019 Social History Tobacco Use Types Packs/Day Years [...] Mass Index 41.98 08/19/2022 3:07 PM CDT Plan of Treatment Not on file Procedures Procedure Name Priority Date/Time Associated Diagnosis Comments LIPID PROFILE Routine 08/08/2021 1:44 PM CDT PCOS (polycystic ovarian syndrome) PAP IG LB+CT+NG+TV+HPV APTIMA RFLX 16,18/45 Routine 07/27/2021 11:01 AM CDT Well woman exam with routine gynecological exam Special screening examination for human papillomavirus (HPV) Screening for venereal disease from Last 3 Months or Most Recently Relevant to Health Maintenance Results * (ABNORMAL) LIPID PROFILE (LIPID PANEL) (08/08/2021 [...] Agency Comment Lab Testing performed at: [facility] [place] [address] [id number] Margarita Wu MD LAB - CHEMISTRY ROLANDA PETERSON [facility] ACCOUNT BILL [address] [place] [address] * (ABNORMAL) PAP IG LB+CT+NG+TV+HPV APTIMA RFLX [...] Performed by [facility] ACCOUNT BILL Comment:Genaro Deluca [facility] Warp Hand (ASCP) Electronically Signed by [facility] ACCOUNT BILL [...] Resulting Agency Comment Lab Testing performed at: [address] [id number] Margarita Wu MD LAB - PATHOLOGY/CYTO LOGY ORDERABLES [facility] ACCOUNT BILL [address] [place] [address] from Last 3 Months or Most Recently Relevant to Health Maintenance Additional Health Concerns Infection Onset Date Last Indicated CDIFF Under Investigation 08/19/20222022 Care Teams Tuck Pointer Relationship Specialty Start Date End Date None, Physician PCP - General 05/20/23 [place] [address] [address] [address] Sales Executive Insurance Obstetrics and Gynecology 07/27/21
--- OUTSIDE RECORDS SUMMARY | 2024-05-14 10:12 | XMS_ITS | Patient Health Record ---
Author Organization [facility] Address [address] [place], [place] [id number] Care Team Providers Care Contract Preparer Name Role Phone WENDY WILLIAM Unavailable [phone] Reason For Referral No Information Plan Of Treatment No Information
--- OUTSIDE RECORDS SUMMARY | 2024-05-14 10:12 | XMS_ITS | Clinical Summary ---
Author Organization [facility] Address [address] [place] [address] Care Team Providers Care Third Shift Lieutenant Name Role Phone Margarita Wu MD Unavailable [phone] None, Physician Primary Care Provider Unavailabl e Source Comments [facility],non-owned Affiliates and Associated Physician Practices is amultiple site organization consisting of ambulatory clinics and hospital sitesin [place], [place] and [place]. This disclosure is being madepursuant to the Care Everywhere program and may not contain all information available regarding this patient. Last updated 17.[facility] Allergies Active Allergy Reactions Criticality Noted Date Comments Dairy Enzyme Formula Anaphylaxis High 07/27/2021 Flu Virus Vaccine Anaphylaxis High 01/15/2019 Right side went numb. Hard time breathing and couldn't turn neck. Hemophilus B Polysaccharide Vaccine Anaphylaxis High 01/15/2019 Right side went numb. Hard time breathing and couldn't turn neck. [place] Flavor Swelling High 07/27/2021 Medications * Be [...] pap 2022 due to history abnormal pap [id number] with colpo. No records in Epic. Sebaceous cyst 09/14/2012 PCOS (polycystic ovarian syndrome) Disorder of thyroid Anxiety disorder Immunizations Name Administration Dates Next Due TDAP (7yrs+) 04/19/2019 Family History Medical History Relation Name Comments CAD (Coronary Artery Disease) Father Cancer - Colon Father Cancer - Prostate Father Diabetes - Type 2 Father Hypertension Father Arthritis - Osteo Mother Arthritis - Rheumatoid Mother Cancer - Ovarian Mother Cancer - Thyroid Mother Hypertension Mother Thyroid Disease Mother Relation Name Status Comments Father Mother Social History Tobacco Use Types Packs/Day Years [...] 08/19/2022 3:07 PM CDT Plan of Treatment Health Maintenance Due Date Last Done Comments MAMMOGRAM 1985 HIV SCREENING 08/05/1998 HEPATITIS C SCREENING 08/01/2001 HEPATITIS B VACCINE (1 of 3 - 19+ 3-dose series) 08/05/2002 COVID-19 VACCINE (2023-2 5 season) 2023 DEPRESSION SCREENING 03/03/2024 04/09/2022, 01/15/2022 PAP with HPV 07/27/2026 07/27/2021 LIPID TESTING 08/08/2026 08/08/2021 DTAP/TDAP/TD VACCINES (2 - T d or Tdap) 04/19/2029 04/19/2019 ZOSTER VACCINE (1 of 2) 08/05/2033 HIB VACCINE Aged Out No longer eligi ble based on patient's age to complete this topic HPV VACCINE Aged Out No longer eligi ble based on patient's age to complete this topic MENINGOCOCCAL (Group B) VACCINE SHARED DECISION-MAKING Aged Out No longer eligible based on patient's age to complete this topic MENINGOCOCCAL GROUPS A/C/Y/W VACCINE Aged Out No longer eligible b ased on patient's age to complete this topic PNEUMOCOCCAL VACCINE Aged Out No long er eligible based on patient's age to complete [...] Agency Comment Lab Testing performed at: [facility] [place] [address] [facility] [id number] Margarita Wu MD LAB - CHEMISTRY ROLANDA PETERSON [facility] ACCOUNT BILL [address] [place] [address] * (ABNORMAL) PAP IG LB+CT+NG+TV+HPV APTIMA RFLX [...] [facility] ACCOUNT BILL Comment:Genaro Deluca [facility] Senior Talent Management Consultant (ASCP) Electronically Signed by [facility] ACCOUNT BILL [...] Agency Comment Lab Testing performed at: [facility] [address] [id number] Margarita Wu MD LAB - PATHOLOGY/CYTO LOGY ORDERABLES [facility] ACCOUNT BILL [address] [place] [address] from Last 3 Months or Most Recently Relevant to Health Maintenance Additional Health Concerns Infection Onset Date Last Indicated CDIFF Under Investigation 08/19/20222022 Care Teams Third Shift Lieutenant Relationship Specialty Start Date End Date None, Physician PCP - General 05/20/23 [place] [address] [address] Fence Setter Obstetrics and Gynecology 07/27/21
== END 2024-05-14 09:36 | disposition home or self-care (01) ==
LOC: ANHIMG 09:38
PROVIDERS: Visit Provider Surgery
DX: R92.8 Other abnormal and inconclusive findings on diagnostic imaging of breast (principal); N61.1 Abscess of the breast and nipple
CPT/HCPCS: 76642

== ENCOUNTER 2024-08-26 13:12 | Outpatient (CLI) | payer OTHER, SELFPAY ==
--- NOTE | ~2024-08-26 | MM_ITS ---
EXAMINATION: MM diagnostic derrick BI w reynaldo HISTORY: Mastitis TECHNIQUE: 3-D tomosynthesis images of the breasts were performed and synthetic 2-D images were gener ated. CAD analysis was submitted and interpreted. COMPARISON: Prior ultrasound dated 05/14/2024 BREAST PARENCHYMAL COMPOSITION: The breasts are almost entirely fatty. FINDINGS: No mass lesion or distortion seen in either breast. No suspicious microcalcification. Paren chymal pattern of the breasts is unremarkable. IMPRESSION: No mammographic evidence for malignancy. BI-RADS Category 1: Negative Reviewed, dictated and finalized at location .
== END 2024-08-26 13:13 | disposition home or self-care (01) ==
LOC: ANHIMG 13:13
PROVIDERS: Visit Provider Surgery
DX: N63.10 Unspecified lump in the right breast, unspecified quadrant (principal); N61.1 Abscess of the breast and nipple; N64.52 Nipple discharge
CPT/HCPCS: 77062; 77066; G0279

== ENCOUNTER 2024-12-14 13:02 | Outpatient (CLI) | payer OTHER, SELFPAY ==
--- OUTSIDE RECORDS SUMMARY | 2023-11-12 04:50 | XMS_ITS ---
Author Organization [facility] Address [address] [place], [place] [address] Care Team Providers Care Director Of Catering Name Role Phone STEWART WENDY Unavailable [phone] REASON FOR VISIT *Foot Pain Encounters Encounter Location Date Provider Diagnosis [facility] [address] [facility] [address] [place], [place] [address] 11/12/2023 WENDY BREWSTER Plan Of Treatment No Information Progress Notes * Antelmo LINGDOB:1985 (39 yo F)Acc No.[id number]:11/12/2023 Progress Notes Patient: Antelmo MCGEE Provider: Brandy Brewster DPM :1985 A ge:38 Y S ex:Female Date:11/12/2023 Address:[address] [place] [id number] Subjective: * Chief Complaints: * 1 . *Foot Pain. * Medical History: Objective: * Vitals: Assessment: Plan: * Treatment: * Billing Information: * Visit Code: * Procedure Codes: * Electronic signature of GEN CID DPM on 12/14/2024 at 02:54 PM CDT Sign off status: Pending * Provider: Brandy Brewster DPM Date: 0 11/12/2023 Generated for Joann dixon/Nikolai/Cheo on: 1 02:54 PM CDT
--- NOTE | 2024-12-14 13:00 | ECG_ITS ---
Test Date: 2024-12-14 13:24:12 Measurements Intervals [place] Rate: 85 P: 31 CT: 171 QRS: -6 QRSD: 95 T: 97 QT: 350 QTc: 417 Interpretive Statements SINUS RHYTHM LEFT VENTRICULAR HYPERTROPHY WITH ST-T CHANGE POOR R WAVE PROGRESSION BORDERLINE T WAVE ABNORMALITY- ANTERIOR LEADS BASELINE ARTIFACT- I, III, AVR, AVL, AVF, V1-V6 BORDERLINE ECG No previous ECG available for comparison Electronically Signed On 12-14-2024 14:21:20 CDT by Tristan Hoang D.O.
[2024-12-14 13:56] LABS: Anion Gap 6 mmol/L (4-12); Blood Urea Nitrogen 17 mg/dL (7-17); Calcium 9.0 mg/dL (8.4-10.2); Carbon Dioxide 28 mmol/L (22-30); Chloride 102 mmol/L (98-107); Estimated Glomerular Filt Rate > 60; Glucose 86 mg/dL (65-110); Potassium 4.0 mmol/L (3.4-5.0); Sodium 136 mmol/L (137-145)
--- OUTSIDE RECORDS SUMMARY | 2024-12-14 14:54 | XMS_ITS | Clinical Summary ---
Author Organization [address] Address [address] [place] [address] Care Team Providers Care Skein Yard Drier Name Role Phone Dilcia Veronica NP Primary Care Provider + Allergies Active Allergy Reactions Criticality Noted Date Comments Haemophilus Influenzae Type B Anaphylaxis High 01/15/2019 Right side went numb. Hard time breathing and couldn't turn neck. [place] Flavor Swelling High 07/27/2021 Medications buPROPion XL (WELLBUTRIN XL) 150 mg 24 hr tablet Take 150 mg by mouth daily 04/24/2022 Active naltrexone (DEPADE) 50 mg tablet Take 50 mg by mouth daily 04/25/2022 Active ondansetron (ZOFRAN) 4 mg tablet Take 1 tablet (4 mg total) by mouth every 6 (six) hours as needed 08/19/2022 Active levETIRAcetam (KEPPRA) 500 mg tablet Take 1 tablet (500 mg total) by mouth 2 (two) times a day 180 tablet 3 07/21/2024 6 Active Active Problems Problem Noted Date Diagnosed Date DAMON (dyspnea on exertion) Family History Medical History Relation Name Comments [...] on file Legal 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 Gender Identity Not on file Sexual Orientation Not on file Obstetrics History Last Filed Vital Signs Vital Sign Reading Time Taken Comments Blood Pressure 124/78 07/21/2024 10:58 AM CDT Pulse 74 07/21/2024 10:58 AM CDT Temperature 35.9 C (96.6 F) 01/29/2022 8:58 AM SOAP PRESS FEEDER Respiratory Rate 18 01/29/2022 8:58 AM SOAP PRESS FEEDER Oxygen Saturation 98% 07/21/2024 10:58 AM CDT Inhaled Oxygen Concentration - - Weight 134.7 kg (297 lb) 07/21/2024 10:58 AM CDT Height 180.3 cm (5' 10.98) 07/21/2024 10:58 AM CDT Body Mass Index 41.44 07/21/2024 10:58 AM CDT Plan of Treatment Health Maintenance Due Date Last Done Comments Cervical Cancer Screening 1983 Hepatitis C Screening 1983 Varicella Vaccines (1 of 2 - 13+ 2-dose series) 08/05/1996 Hepatitis B Screening 08/05/2001 Regular Well Visit/Exam 18-64 08/05/2001 HPV Vaccines (1 - 3-dose SCD M series) 08/05/2010 Breast Cancer Screening-Mammogram 12/12/2016 12/13/2015, 06/06/2014, 06/04/2014 Depression Screening 06/19/2019 06/18/2018 Influenza Vaccine (#1) 2024 DTaP/Tdap/Td Vaccine (2 - Td or Tdap) 04/19/2029 04/19/2019 Pneumococcal vaccine <65 Aged Out No longer [...] family history. Dr. Gunner Dow nh/:12/13/2015 16:01:08 Industrial Gas Servicer Helper: Deirdre AMARAL (Ama)(Yohana), [facility] letter sent: Normal Exam Reading location: OVERALL [...] to exam dated: 06/04/2014 baseline mammogram - [facility]. BREAST TISSUE: There are scattered areas [...] [facility] made [facility]: There are scattered [...] family history. Dr. Gunner Dow nh/:12/13/2015 16:01:08 Industrial Gas Servicer Helper: Deirdre AMARAL (R)(Yohana), [facility] letter sent: Normal Exam Reading location: OVERALL STUDY BIRADS: 1 Negative [EOD] us Brian Penny MD IMG MAMMO PROCEDURES Final Result from Last 3 Months or Most Recently Relevant to Health Maintenance Insurance [facility] [facility] [facility] [employer] Care Teams Skein Yard Drier Relationship Specialty Start Date End Date Dilcia Veronica NP PCP - General Family Practice 04/30/24
--- OUTSIDE RECORDS SUMMARY | 2024-12-14 14:54 | XMS_ITS | Patient Health Record ---
Author Organization [facility] Address [address] [facility] [address] [place], [place] [id number] Reason For Referral No Information Plan Of Treatment No Information
--- OUTSIDE RECORDS SUMMARY | 2024-12-14 14:54 | XMS_ITS | Encounter Summary ---
Author Organization [facility] Care Team Providers Care Cold Meat Cook Name Role Phone Cookie Fernandez MD Primary Care Provi alex Casey Chavez MD Primary Care Provider [phone] Dwain Christensen MD Primary Care Provider Dilcia Veronica NP Primary Care Provider + Encounter Details Date Type Department Care Team (Latest Contact Info) Description 11/17/2015 Orders Only [facility] CLINCONV Provider, MD Neris [address] [place] [address] Social History Tobacco Use Types Packs/Day Years Used Date Smoking Tobacco: Never Assessed Comments Unknown Sex and Gender Information Value Date Recorded Sex Assigned at Not on file 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
--- OUTSIDE RECORDS SUMMARY | 2024-12-14 14:54 | XMS_ITS | Clinical Summary ---
Author Organization [facility] Address [address] [place] [address] Phone Care Team Providers Care Test Engineering Intern Name Role Phone Cookie Fernandez MD Primary Care Provider [phone] Allergies Active Allergy Reactions Criticality Noted Date Comments Flu Vacc Quad 2017-(6mos Up) Other (See Comments) 01/15/2019 Right side went numb. Hard time breathing and couldn't turn neck. Medications no.63-mnhu-HD-d jerry (OPTICAL MECHANIC APPRENTICE-PNV-DHA) 28 mg iron- 1 mg-200 mg Capsule [...] declined 06/30/2019 How often do you attend baptist or protestant serv ices? Patient declined 06/30/2019 Do you belong to any clubs o r organizations such as baptist groups, unions, fraternal or athletic groups, or [...] on file Legal Sex Female 6:05 AM SAP DATA ARCHITECT Gender Identity Not on file Sexual Orientation [...] 7:20 PM CDT Height 180.3 cm (5' 11) 06/30/2019 7:20 PM CDT Body Mass Index 38.54 06/30/2019 7:20 PM CDT Plan of Treatment Health Maintenance Due Date Last Done Comments HEPATITIS B VACCINES (1 of 3 - 19+ 3-dose series) 08/05/2002 HPV VACCINES (1 - 3-dose SCD M series) 08/05/2010 PAP SMEAR 12/14/2021 12/14/2018, 01/01, 01/12/2018, Additional history exists BREAST CANCER SCREENING 2023 12/13/2015, 06/06 CERVICAL CANCER SCREENING 12/15/2023 HPV/Cotest (21-29) 12/15/2023 12/14/2018, 1 03/14/2017, 01/10/2017, Additional history exists HPV/Cotest (30-65) 12/15/2023 12/14/2018, 1 03/14/2017, 01/10/2017, Additional history exists INFLUENZA VACCINE (#1) 2024 DTAP/TDAP/TD VACCINES (2 - T d or Tdap) 04/19/2029 04/19/2019 Procedures Procedure Name Priority Date/Time Associated Diagnosis [...] LAB SOURCE Endocervix 12/17/2018 2:21 PM CDT [facility] ADEQUACY: SEE COMMENT 12/17/2018 2:21 [...] computer assisted technology. 12/17/2018 2:21 PM CDT [facility] COMPRESSED GASES TESTER: SEE COMMENT 2018 2:21 PM CDT [facility] Comment: BKA, CT(ASCP) CT screening location: [place] [address] [place], [place] [address] EXPLANATORY NOTE SEE COMMENT 019 2:21 PM [...] was performed using the APTIMA HPV Assay ([employer] This assay detects E6/E7 viral messenger RNA (mRNA) from 14 high-risk HPV types (16,18,31,33,35,39,45,51,52,56,58,59,66,68). The analytical performance characteristics of this assay have been determined by [facility]. The modifications have not been cleared or approved by the FDA. This assay has been validated pursuant to the CLIA regulations and is used for clinical purposes. Genital SWAB OF ENDOCERVIX / Unknown Collection / Unknown 12/14/2018 11:14 AM CDT 12/14/2018 1:58 PM CDT Narrative [facility] - 12/17/2018 2:21 PM CDT Performing Organization Information: Site ID: [id number] [facility] Address: [address] [place] [address] Director: Harman Giordano D.O., MPH Site ID: [id number] [facility] Address: [address] [place] [address] Director: Kenroy Linares Brian Penny MD PATHOLOGY/CYTOLOGY [facility] Final Result [facility] [phone] * MAMMO DIGITAL DIAG BILAT (12/13/2015) Anatomical Region Laterality Modality Breast Bilateral Other us Brian Penny MD MAMMO ORDERABLES Final Result from Last 3 Months or Most Recently Relevant to Health Maintenance Insurance [employer] BLUE ACCESS/TRUE BLUE PPO RX [employer] Commercial Advance Directives For more information, please contact: [phone] * Full Code (Latest Code Status on [...] 8:29 AM 05/20/2013 11:45 AM Care Teams Test Engineering Intern Relationship Specialty Start Date End Date Cookie Fernandez MD [address] [place] [address] PCP - General Family Practice 01/10/17
--- OUTSIDE RECORDS SUMMARY | 2024-12-14 14:54 | XMS_ITS | Clinical Summary ---
Author Organization [facility] [place] Address [address] [place] [address] Care Team Providers Care Sales Representative Wire R[employer] Name Role Phone Margarita Wu MD Unavailable [phone] None, Physician Primary Care Provider Unavailabl e Source Comments [facility] [place],non-owned Affiliates and Associated Physician Practices is amultiple site organization consisting of ambulatory clinics and hospital sitesin [place], [place], [place] and [place]. This disclosure is being madepursuant to the Care Everywhere program and may not contain all information available regarding this patient. Last updated 17.[facility] [place] Allergies Active Allergy Reactions Criticality Noted Date Comments Dairy Enzyme Formula Anaphylaxis High 07/27/2021 Flu Virus Vaccine Anaphylaxis High 01/15/2019 Right side went numb. Hard time breathing and couldn't turn neck. Hemophilus B Polysaccharide Vaccine Anaphylaxis High 01/15/2019 Right side went numb. Hard time breathing and couldn't turn neck. [place] Flavor Swelling High 07/27/2021 Medications * Be aware that medications may not be up to date on this document. Alwaysverify current medications with the patient. tirzepatide (Mounjaro) 5 MG/0.5ML injectionIndica tions:Class 3 severe obesity due to excess calories with serious comorbidity and body mass index (BMI) of 40.0 to 44.9 in adult (HCC),Insulin resistance Inject 5 (five) mg subcutaneously every 7 days 2 mL 2 02/14/20 22 Active traZODone (Desyrel) 50 MG tabletIndicatio ns:Generalized anxiety disorder,Reacti ve depression Take 1 (one) tablet by mouth at bedtime 90 tablet 04/09/19 Active buPROPion XL 24hr (Wellbutrin-XL) 150 MG tabletIndicatio ns:Class 3 severe obesity due to excess calories with serious comorbidity and body mass index (BMI) of 40.0 to 44.9 in adult (HCC) Take 1 (one) tablet by mouth once daily 30 tablet 2 04/24/19 Active naltrexone (Revia) 50 MG tablet Take 1 (one) tablet by mouth once daily 30 tablet 2 04/25/19 Active dicyclomine (Bentyl) 10 MG capsule Take 1 (one) capsule by mouth 4 times daily 60 capsule 08/20/19 Active ondansetron (Zofran) 4 MG tablet Take 1 (one) tablet by mouth every 6 hours as needed for Nausea/Vomiting 60 tablet 08/20/19 Active Active Problems Problem Noted Date Diagnosed Date Class 3 severe obesity due t o excess calories with serious comorbidity and body mass index (BMI) of 40.0 to 44.9 in adult 02/06/2022 Pulmonary hypertension 01/15/2022 ASCUS of cervix with negative high risk HPV 08/2021 Overview (2021): Repeat pap 2022 due to history abnormal pap [id number] with colpo. No records in Epic. 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 Gender Identity Female 07/27/2021 10:18 AM CDT [...] 3:07 PM CDT Height 180.3 cm (5' 11) 08/19/2022 3:07 PM CDT Body Mass Index 41.98 08/19/2022 3:07 PM CDT Plan of Treatment Health Maintenance Due Date Last Done Comments MAMMOGRAM 1985 HIV SCREENING 08/05/1998 HEPATITIS C SCREENING 08/01/2001 HEPATITIS B VACCINE (1 of 3 - 19+ 3-dose series) 08/05/2002 HPV VACCINE (1 - 3-dose SCDM series) 08/05/2010 DEPRESSION SCREENING 03/03/2024 04/09/2022, 01/15/2022 COVID-19 VACCINE (1 - 2023-2 5 season) 2024 PAP with HPV 07/27/2026 07/27/2021 LIPID TESTING [...] Resulting Agency Comment [facility] [address] [phone] [place] Margarita Wu MD LAB - CHEMISTRY ORDERABLES Fin al Result [facility] ACCOUNT BILL [address] [place] [address] * (ABNORMAL) PAP IG LB+CT+NG+TV+HPV APTIMA RFLX [...] Performed by [facility] ACCOUNT BILL Comment:Genaro Deluca iso [employer] Boat [employer] (ASCP) Electronically Signed by [facility] ACCOUNT BILL [...] Resulting Agency Comment Lab Testing performed at: [address] [phone] Margarita Wu MD LAB - PATHOLOGY/CYTOLOGY ORDER JOSEPH Final Result [facility] ACCOUNT BILL [address] [place] [address] from Last 3 Months or Most Recently Relevant to Health Maintenance Additional Health Concerns Infection Onset Date Last Indicated CDIFF Under Investigation 08/19/20222022 Insurance [facility] MEDICAID * Guarantor: ANTELMO LING Account Type Relation to Patient Date of Phone Billing Address Personal/Family 1985 * Guarantor: ANTELMO LING Account Type Relation to Patient Date of Phone Billing Address Personal/Family 1985 Care Teams Sales Representative Wire Rope Relationship Specialty Start Date End Date None, Physician PCP - General 05/20/23 Margarita Wu MD Security Coordinator Obstetrics and Gynecology 07/27/21
== END 2024-12-14 13:03 | disposition home or self-care (01) ==
LOC: ANHSURGERY 13:08
PROVIDERS: Anesthesiology; Visit Provider Surgery
DX: Z01.818 Encounter for other preprocedural examination (principal); R73.03 Prediabetes; R94.31 Abnormal electrocardiogram [ECG] [EKG]
CPT/HCPCS: 36415; 80048; 93005

== ENCOUNTER 2024-12-15 02:39 | Day surgery (SDC) | payer OTHER, SELFPAY ==
--- NOTE | 2024-12-13 12:31 | SUR.PREOP ---
[facility] has started construction of its new state of the art ER which will open Spring 2026. With this, we anticipate parking may be a challenge for some our surgical patients and families. Parking spaces are limited but are available for all Surgical, obstetrics, and ER patients sharing this lot. If you arrive and find you are having a hard time finding a parking space, please note that we understand the challenges, please drive around the hospital and park near Hospital Entrance 1. When you enter this entrance, you can ask a volunteer to direct or take you back to the surgical waiting area to check in. We appreciate everyone?s understanding of these expected challenges while we build for your future. Report to the Outpatient Waiting Room, entrance under the green pavilion located off [address], at time __1200 on date _12/15/24 . Planned Procedure Time: ___1400 .? Time changes happen often and if your time is changed the preop area will call you the afternoon before. - You and your visitor will be asked to self-screen and do not enter if you have any COVID symptoms. Please call surgeon if you need to reschedule. - A mask is optional within the hospital at this time. Patients may have clear liquids (water, carbonated beverages, clear teas, apple juice) until 3 hours prior to surgery with a maximum of 20 ounces. - No food from midnight until time of surgery and no smoking, or chewing tobacco (or any form of nicotine). No chewing gum, candy or mints. Take only the following medications with a SIP of water on the morning of surgery: ___levetiracetam, (ondansetron if needed)__ DO NOT STOP ANY OF YOUR OTHER PRESCRIPTION MEDICATIONS PRIOR TO SURGERY EXCEPT THE FOLLOWING Hold all vitamins and supplements for 3 days per anesthesiologist. Medications to discontinue per physician ____n/a Date to take last dose of vitamins____12/11/24 Please no make-up, nail sami, hairspray, perfume, deodorant, or body powder the day of surgery.? No jewelry (including any body piercings) or valuables the day of surgery, leave them at home.? Please take a shower or bath the night before, or the morning of, surgery with an antibacterial soap.? Wear comfortable, loose fitting clothing.? - Jewelry must be removed prior to entering the operating room.? Rings and piercings that are not removed may be cut off. - The hospital will not accept responsibility for valuables.? - Please leave all valuables, including medications, at home the day of surgery. If you are going home after surgery, a licensed clark driver must drive you home.? - NO public transportation without another adult if you receive anesthesia. - We recommend that an adult stay with you for 24 hours following discharge. - We also recommend that you do not drive, make important decision, drink alcoholic beverages, or take any drugs that were not prescribed by your health care provider for at least 24 hours after your discharge time. Follow any additional instructions given to you from your surgeon. Telephone instructions given to and asked if any additional questions and then verbalized understanding. Patient advised to call surgeon office or pre surgery nurse liaison [phone] if any additional questions.
[2024-12-13 12:40] VITALS: BMI 41.6
[2024-12-15] VITALS (10 sets, daily range): BP systolic 112–142; BP diastolic 73–106; PULSE 66–100; RESP 12–20; TEMP 36.1–36.3; O2SAT 100
[2024-12-15] MEDS: LACTATED RINGERS 1,000 ML 30 ML IV CONT (12:35)
[2024-12-15] MEDS: ACETAMINOPHEN 500 MG TABLET 1000 MG PO (12:38)
[2024-12-15 13:05] LABS: BEDSIDEPREGUCG Negative (Negative)
--- NOTE | 2024-12-15 13:12 | WPDHPUPDATE1 ---
History and Physical Update Update Date/Time: 12/15/24 13:12 - Right subareolar wound washout, possible debridement of subareolar abscess, possible total duct excision. History and Physical has been reviewed, including an updated exam of the patient. There are NO changes in the patient's condition. Risks, benefits, and alternatives have been discussed and questions answered. Patient agrees to proceed with procedure.
--- NOTE | 2024-12-15 13:16 | WPDANESEPPF ---
Anes - Initial Pre Proc Eval Procedure: Operation Date: 12/15/24 14:00 Proposed Procedures p Right Subareolar Wound Washout, Possible Debridement Subareoloar Abscess, Possible Total Duct Excision - Lilian Watts MD Date/Time: 12/15/24 13:16 Surgeon: Lilian Watst MD Pre Op Diagnosis: abscess right breast and nipple Patient Data Age: 39 Gender: F Height: 1.8 m Weight: 135.7 kg Last Vital Signs Temp 36.3 C L 12/15/24 12:05 Pulse 100 12/15/24 12:05 Resp 18 12/15/24 12:05 BP 136/105 H 12/15/24 12:05 Pulse Ox 100 12/15/24 12:05 O2 Del Method Room Air 12/15/24 12:05 Allergies Allergy/AdvReac Type Severity Reaction Status Date / Time No Known Allergies Allergy Verified 12/15/24 12:53 Home Medications ?Medication ?Instructions ?Recorded ?Confirmed ?Type nitrofurantoin macrocrystal 100 mg 100 mg PO Q12H 11/29/24 12/13/24 History capsule ergocalciferol (vitamin D2) 1,250 50,000 unit PO WEEKLY 12/13/24 12/13/24 History mcg (50,000 unit) capsule levetiracetam 500 mg tablet 500 mg PO BID 12/13/24 12/13/24 History metformin 500 mg tablet 500 mg PO BID 12/13/24 12/13/24 History ondansetron HCl 4 mg tablet 4 mg PO PRN 12/13/24 12/13/24 History semaglutide 1 mg/dose (4 mg/3 mL) 1 mg subcut WEEKLY 12/13/24 12/13/24 History subcutaneous pen injector (Ozempic) tretinoin 0.1 % topical cream 1 applic topical 2XW 12/13/24 12/13/24 History Laboratory Tests 12/15/24 12/15/24 12:15 12:26 POC Capillary Glucose 77 mg/dl (65-105) POC Urine HCG, Qual Negative (Negative) Patient hx anesthesia problems: none Family hx anesthesia problems: none Results Review: All pre-operative results and documents have been reviewed as part of the pre-operative evaluation. [facility] Past Medical History Medical History Seizure History of PCOS Allergies Family History Family History Mother Thyroid cancer Ovarian cancer Father Colon cancer Social History Social History Smoking status: Never smoker Alcohol intake: current Alcohol use details: Socially Substance use: never Substance use type: does not use Do You Feel Safe in your Home?: Yes Lack of Transportation: No Lack of Food: Never True Current Housing: I Have Housing Concerned About Future Housing: No Difficulty Paying Gas/Electric Bills: No Difficulty Paying for Meds: No Currently Unemployed: No Education: Master's Degree or Higher Difficulty w/ Childcare or Family Care: Decline to Answer Living arrangements: with family Spiritual care concerns: No Anes - Eval Final PreProcedure Day of Procedure 12/15/24 13:16 Patient weight: morbidly obese Heart: regular rate and rhythm Lungs: clear to auscultation Airway: Mallampati scale class III Neurological: alert and oriented Last oral intake: >/= 8 hours ASA classification: III Emergent: no Anesthetic plan: proceed Anesthesia type and monitoring: general LMA and standard monitoring Results Review: All pre-operative results and documents have been reviewed as part of the pre-operative evaluation. Informed Consent: The patient's anesthetic plan and its attendant risks and benefits were discussed with the patient/family/POA. Questions were solicited and answers provided to the satisfaction of the patient/family/POA.
[2024-12-15] MEDS: SCOPOLAMINE 1 MG PATCH 1 PATCH TRANSDERM (13:18)
[2024-12-15] MEDS: ceFAZolin 3 GM/D5W 100 ML 100 ML IVPB (13:22)
--- NOTE | 2024-12-15 13:42 | SUR.OPER ---
Surgical team discovered permanent waist beads that patient failed to disclose to pre-op nurses and surgical team. Patient stated that the beads contained no metal and, after close examination, no metal was seen by the surgical team.
--- NOTE | 2024-12-15 13:51 | S_PTH ---
PATIENT: Antelmo Ling LOC: [facility] U#:[id number] AGE/SX: 39/F ROOM: RE12/15/[address]: Lilian Watts MD : 1985 BED: DIS: 12/15/2024 SPEC #: [id number] RECD: 12/16/24 07:56 STATUS: ASHISH REQ #: [id number] DRAKE: 12/15/24 13:[address]: Lilian Watts DEPT: [facility] Surgical RECD BY: Mattie Gates Tissues: A - Breast Tissue Procedures: Hematoxylin and Eosin Stain Gross and Microscopic Level 4
--- NOTE | 2024-12-15 14:11 | W.PM.PROC2 ---
Procedure Note - Detailed Date of Procedure 12/15/24 Pre-op Diagnosis Chronic recurrent subareolar right breast abscess Post-op Diagnosis Same Procedure Performed Right breast total duct excision Surgeon Lilian Watts MD Anesthesia MAC Description of Procedure Patient was identified in the preoperative holding area brought to the operating room suite. She was laid supine in the OR table sequential compression devices were applied. Anesthesia was induced without difficulty. The right chest area was prepped and draped in a sterile fashion. A small superior subareolar incision was made and dissection was carried down into the subcutaneous tissue towards the nipple. I was able to identify the central ducts along with some scar tissue and possibly capsule area of a previous abscess, and this was completely excised EN bloc and sent to pathology as a permanent specimen. The cavity was irrigated with saline hemostasis was assured. The central cavity was now approximated with interrupted 2 0 Vicryl and the deep dermal layer was then closed with interrupted 3-0 Vicryl followed by 4-0 Monocryl in a subcuticular fashion for the skin. Dermabond was applied followed by a sterile dressing and a surgical bra. Patient was awoken from anesthesia and taken to the recovery area stable condition. All needles, instruments, and sponge counts were correct as reported by the operating room staff. Patient tolerated the procedure well with no immediate complications. Estimated Blood Loss 2 Pathology Yes Complications No immediate complications Condition Stable Disposition PACU [facility] Billing Surgery - Charge Forward: Surgery Billing (CPT 97985)
[2024-12-15] MEDS: fentaNYL CITRATE INJ (*CRX) 100 MCG/2 ML VIAL 25 MCG IV PUSH ×5 (14:36→14:57)
[2024-12-15] MEDS: ONDANSETRON INJ 4 MG/2 ML VIAL IV PUSH (15:37)
== END 2024-12-15 17:00 | disposition home or self-care (01) ==
PROVIDERS: Visit Provider Surgery
PROC: (CPT 19120; principal; 2024-12-15 14:00)
DX: N61.1 Abscess of the breast and nipple (principal); E28.2 Polycystic ovarian syndrome; R56.9 Unspecified convulsions; E66.01 Morbid (severe) obesity due to excess calories; Z68.41 Body mass index [BMI] 40.0-44.9, adult; Z79.84 Long term (current) use of oral hypoglycemic drugs; Z79.85 Long-term (current) use of injectable non-insulin antidiabetic drugs; Z80.8 Family history of malignant neoplasm of other organs or systems; Z80.1 Family history of malignant neoplasm of trachea, bronchus and lung; Z80.0 Family history of malignant neoplasm of digestive organs
CPT/HCPCS: 19120; 82948; 88305; A9270; J0690; J2250; J2270; J2405; J2704; J3010; J7120